=== PATIENT | female | born 1995 | race Caucasian/White ===

== ENCOUNTER 2018-05-07 16:30 | Emergency (ER) | payer SELFPAY ==
[~2018-05-07] VITALS: Ht 170.2 cm; Wt 76.2 kg
[2018-05-07] MEDS ORDERED: KETOROLAC TROMETHAMINE 30 MG/ML VIAL IV STA (16:44)
[2018-05-07] MEDS ORDERED: ONDANSETRON HCL INJ 2 MG/ML VIAL IV STA (16:44)
[2018-05-07] MEDS ORDERED: HYDROCODONE/APAP 10MG-325MG TAB PO ONE (16:45)
[2018-05-07 17:56] LABS: BASOPHILS # (AUTO) 0.1 (0.0-0.1); BASOPHILS % 0.4 % (0.0-1.0); EOSINOPHILS # (AUTO) 0.2 (0.0-0.4); EOSINOPHILS % 1.6 % (0.0-6.0); HEMATOCRIT 34.8 % (34.2-44.1); HEMOGLOBIN 11.6 g/dL (12.0-16.0); LYMPHOCYTES # (AUTO) 2.2 (1.0-3.2); LYMPHOCYTES % 16.5 % (18.0-39.1); MEAN CORPUSCULAR HGB CONC 33.3 g/dL (31-35); MEAN CORPUSCULAR VOLUME 89.9 fL (81-99); MONOCYTES % 7.6 % (4.4-11.3); NEUTROPHILS # (AUTO) 9.9 (2.1-6.9); NEUTROPHILS % 73.5 % (38.7-80.0); PLATELET COUNT 234 x10e3/uL (140-360); RED BLOOD COUNT 3.87 x10e6/uL (3.6-5.1); RED CELL DISTRIBUTION WIDTH 11.5 % (11.7-14.4)
[2018-05-07 18:03] LABS: BILIRUBIN,URINE NEGATIVE (NEGATIVE); CLARITY,URINE SL CLOUDY (CLEAR); COLOR,URINE YELLOW (YELLOW); KETONES,URINE NEGATIVE (NEGATIVE); LEUKOCYTE ESTERASE ,URINE NEGATIVE (NEGATIVE); NITRITE,URINE NEGATIVE (NEGATIVE); PREGNANCY TEST, URINE NEGATIVE (NEGATIVE); PROTEIN,URINE DIPSTICK NEGATIVE (NEGATIVE); URINE UROBILINOGEN 0.2 mg/dL (0.2 - 1)
[2018-05-07 18:09] LABS: BACTERIA,URINE MODERATE /HPF; EPITHELIAL CELLS,URINE MANY /LPF; WBC,URINE (MAN) 0-5 /HPF (0-5)
[2018-05-07 18:13] LABS: ALANINE AMINOTRANSFERASE 10 IU/L (0-55); ALBUMIN 3.8 g/dL (3.5-5.0); ALKALINE PHOSPHATASE 80 IU/L (40-150); ANION GAP 16.6 mmol/L (8-16); BLOOD UREA NITROGEN 9 mg/dL (7-26); BUN/CREATININE RATIO 11 (6-25); CALCIUM 9.7 mg/dL (8.4-10.2); CARBON DIOXIDE 24 mmol/L (22-29); CHLORIDE 105 mmol/L (98-107); CREATININE, SERUM 0.83 mg/dL (0.57-1.11); EST GLOMERULAR FILTRATION RATE > 60 ML/MIN (60-); GLUCOSE 119 mg/dL (74-118); POTASSIUM 3.6 mmol/L (3.5-5.1); SODIUM 142 mmol/L (136-145)
--- NOTE | 2018-05-07 19:16 | Diagnostic Imaging Report ---
EXAM: Transabdominal and Transvaginal Pelvic Ultrasound INDICATION: \S\abd pain COMPARISON: None TECHNIQUE: Grayscale transverse and sagittal transabdominal and transvaginal images were obtained of the pelvis. Transvaginal imaging was medically necessary to better evaluate the endometrium and the adnexa. CLINICAL HISTORY: 22 year old A0; last menstrual period: 05/03/2018. FINDINGS: Uterus Orientation: Normal Size: 7.1 x 3.9 x 5.3 cm, Normal Mass: 1.0 x 0.9 x 1.4 cm subserosal echogenic lesion in the fundus suggestive of fibroid. Cervix: Normal Endometrium: Thickness: 0.8 cm, Normal. Appearance: Homogeneous echotexture without focal thickening. Right ovary: Size: 4.1 x 2.8 x 3.3 cm Mass/Cyst: 2.2 x 1.7 x 1.9 cm anechoic simple cyst in the right ovary. Additional multiple follicles measuring less than 2 cm. Left ovary: Size: 5.1 x 4.8 x 3.5 cm Mass/Cyst: 1.4 x 1.3 x 1.0 cm cystic lesion in the left ovary containing some internal echogenicity may represent a hemorrhagic cyst versus endometrioma. 3.4 x 3.0 x 2.9 cm cyst containing mild internal echogenicity suggestive of hemorrhagic cyst. Adnexa: Normal Cul-de-sac: Small amount of free fluid IMPRESSION: Small subserosal fibroid at the fundus of the uterus. Mildly complex left ovarian cyst with the largest measuring 3.4 cm suggestive of hemorrhagic cysts. Differential diagnosis include endometriomas. Recommend follow-up pelvic ultrasound in 6-8 weeks. Signed by: Dr. Victoria Montero M.D. on 05/07/2018 7:13 PM
--- NOTE | 2018-05-07 19:59 | Diagnostic Imaging Report ---
EXAM: CT Abdomen and Pelvis WITH contrast INDICATION: \S\abd pain \[id number] \S\1900 COMPARISON: Pelvic ultrasound 05/07/2018 TECHNIQUE: Abdomen and pelvis were scanned utilizing a multidetector helical scanner from the lung base to the pubic symphysis after administration of IV contrast. Coronal and sagittal reformations were obtained. Routine protocol was performed. Scan was performed when during portal venous phase. IV CONTRAST: 100 mL of Isovue 370 ORAL CONTRAST: Water RADIATION DOSE: Total DLP: 313.9 mGy*cm Estimated effective dose: (DLP x 0.015 x size factor) mSv COMPLICATIONS: None FINDINGS: LINES and TUBES: None. LOWER THORAX: Unremarkable HEPATOBILIARY: No focal hepatic lesions. No biliary ductal dilation. GALLBLADDER: No radio-opaque stones or sludge. No wall thickening. SPLEEN: No splenomegaly. PANCREAS: No focal masses or ductal dilatation. ADRENALS: No adrenal nodules KIDNEYS/URETERS: Kidneys enhance symmetrically. No hydronephrosis. No cystic or solid mass lesions. 2 mm nonobstructing calcified stone in the upper pole of the right kidney on series 2, image 40. GI TRACT: No abnormal distention, wall thickening, or evidence of bowel obstruction. Appendix is normal. PELVIC ORGANS/BLADDER: The urinary bladder appears unremarkable. Bilateral ovarian cysts, measuring up to 3.4 cm on the left, some of them measuring simple fluid while others mildly hyperdense correlate with the hemorrhagic cysts seen on earlier pelvic ultrasound. Tampon within the vagina. LYMPH NODES: Multiple small up to 0.5 cm noncalcified mesenteric lymph node, better seen on coronal image 38. There is mild surrounding fat stranding without fluid collections. VESSELS: Unremarkable. PERITONEUM / RETROPERITONEUM: No free air or fluid. 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 SOFT TISSUES: Unremarkable. IMPRESSION: 1. Nonobstructing right nephrolithiasis. 2. Multiple small noncalcified mesenteric lymph nodes with surrounding mild fat stranding may represent mesenteric adenitis. If symptoms persist, consider follow-up CT abdomen and pelvis in 6-8 weeks. 3. Bilateral ovarian cysts better characterized on earlier pelvic ultrasound. Signed by: Dr. Victoria Montero M.D. on 05/07/2018 7:55 PM
[2018-05-07 20:11] VITALS: BP 109/64
[2018-05-07] MEDS ORDERED: IOPAMIDOL 370 MG/ML 200 ML INFUS..BTL INJ ONE (22:35)
[2018-05-07] MEDS ORDERED: SODIUM CHLORIDE 0.9% 50ML 50 ML ONE (22:35)
== END 2018-05-07 21:06 | disposition home or self-care (01) ==
LOC: ER 16:30
DX: R10.84 Generalized abdominal pain (principal); N83.202 Unspecified ovarian cyst, left side; E28.2 Polycystic ovarian syndrome
CPT/HCPCS: 36415; 74177; 76830; 80053; 81001; 81025; 85025; 99284; J1885; J2405; Q9967

== ENCOUNTER 2020-09-01 21:45 | Emergency (ER) | payer SELFPAY ==
[~2020-09-01] VITALS: Ht 170.2 cm; Wt 76.2 kg
[2020-09-01] MEDS ORDERED: PENICILLIN G BENZATHINE LA 1.2 MU TBX IM STA (22:23)
[2020-09-01] MEDS ORDERED: DEXAMETHASONE SOD PHOS 10 MG/1 ML VIAL IM ONE (22:30)
[2020-09-01] MEDS ORDERED: DEXAMETHASONE SOD PHOS 10 MG/1 ML VIAL ONE (22:34)
[2020-09-01] MEDS ORDERED: PENICILLIN G BENZATHINE LA 1.2 MU TBX ONE (22:34)
== END 2020-09-01 23:00 | disposition home or self-care (01) ==
LOC: ER 22:24
DX: J02.0 Streptococcal pharyngitis (principal); H92.02 Otalgia, left ear; E28.2 Polycystic ovarian syndrome
CPT/HCPCS: 99282; J0561; J1100